=== PATIENT | female | born 2005 | race Two or more races ===

== ENCOUNTER 2023-09-02 13:29 | Emergency (ER) | payer OTHER ==
[2023-09-02 13:51] VITALS: BP 122/94; RESP 18; TEMP 97.9; BMI 27.8
[2023-09-02 14:29] VITALS: PULSE 92
== END 2023-09-02 14:30 | disposition home or self-care (01) ==
LOC: FER 13:29
DX: S00.452A Superficial foreign body of left ear, initial encounter (principal); X58.XXXA Exposure to other specified factors, initial encounter
CPT/HCPCS: 99283-25